=== PATIENT | male | born 1990 | race Hispanic/Latino ===

== ENCOUNTER 2024-12-04 18:04 | Emergency (ER) | payer SELFPAY ==
[2024-12-04 18:13] VITALS: BP 158/97
[2024-12-04 18:46] VITALS: BP 134/76
[2024-12-04 18:46] LABS: % Basophils 0.2 % (0-2); % Eosinophils 0.2 % (0-6); % Immature Granulocytes 0.5 % (0-0.5); % Lymphocytes 12.2 % (20.5-51.1); % Monocytes 4.6 % (1.7-9.3); % Neutrophils 82.3 % (42.2-75.2); Absolute Immature Granulocytes 0.1 10^3/uL (0-0.05); Absolute Lymphocytes 1.9 10^3/uL (1.2-3.4); Absolute Monocytes 0.7 10^3/uL (0.1-0.6); Absolute Neutrophils 12.9 10^3/uL (1.4-6.5); Hematocrit 44.5 % (39.0-52.0); Hemoglobin 15.4 g/dL (13.0-18.0); Mean Corp Hgb Conc. 34.6 g/dL (33.0-37.0); Mean Corpuscular Hgb 31.2 pg (27.0-31.0); Mean Corpuscular Volume 90.3 fL (80.0-94.0); Nucleated Red Blood Cells % 0 % (-); Platelet Count 251 10^3/uL (130-400); Red Blood Cell Count 4.93 10^6/uL (4.70-6.10); White Blood Cell Count 15.6 10^3/uL (4.8-10.8)
--- NOTE | 2024-12-04 18:47 | ED.GENMED ---
History of Present Illness
General
Chief Complaint: Trauma Significant Mechanism
Source: patient and other (co-worker)
Time Seen by Provider: 12/04/24 18:36
History of Present Illness
History of Present Illness:
34-year-old male presents to the emergency room via private vehicle after having a ride on lawnmower flipped over on top of him. Patient states that around 4 PM he was riding this lawnmower up a hill when it flipped over and landed on top of him.
Patient did not lose consciousness but was pinned under the mower for some time. He required 4 individuals to lift the mower off the top of him. Patient states the weight of the bowel or was causing him to feel as if he was going to pass out.
Patient is complaining of sternal pain, bilateral shoulder and clavicle pain. Patient states he was able to move his arms at the shoulder earlier but has difficulty moving them now seemingly because of pain primarily. He denies any numbness or
tingling anywhere in his body. He denies back pain per se. He takes drops for glaucoma but no oral medications. His last meal was about 1:20 PM. He does not recall his last tetanus shot. He denies abdominal pain nausea or vomiting. He has been
ambulatory with assistance after the injury.
Phy Exam
Physical Exam
Physical Exam:
General: Awake, Alert, Oriented X3. Appears very uncomfortable
Vitals: Mildly hypertensive
Head: Atraumatic
Eyes: Pupils equal, EOMI
Throat: Airway intact, no exudates
Neck: Trachea midline, no significant tenderness midline palpation
Chest: Tender to palpation of the sternum, some questional crepitance over the right thorax
Lungs: Clear and equal b/l
Heart: Regular rate, no murmurs
Abd: Soft, Nontender, No pulsatile mass
Neuro: Cranial nerves intact, muscle strength equal bilaterally, cerebellar exam normal
Skin: Warm, dry, no rash
Extremities: pulses equal b/l, no edema. Radial pulses dorsalis pedis pulses intact bilaterally. Range of motion intact at the ankle, knee, hip bilaterally. Range of motion intact in the digits wrist and elbow bilateral upper extremities. Pain
limits range of motion of the shoulders bilaterally.
Course
Orders/Labs/Results
Orders:
Orders
12/04/24 18:36
CT Cervical Spine W/o Iv Contr Urgent
Comment:
Reason For Exam: fall
CT Head W/o Iv Contrast Urgent
Comment:
Reason For Exam: fall
12/04/24 18:38
Complete Blood Count/With Diff Urgent
Comprehensive Metabolic Panel Urgent
12/04/24 18:46
CT Chest/abd/pel W Iv Cont Stat
Comment:
Reason For Exam: trauma/crush inj
Chest X-ray Portable [CR Chest Portable - 1 View] Stat
Comment:
Reason For Exam: trauma, sob
Reason Study Needs to be Portable: Patient Unstable
12/04/24 18:47
HYDROmorphone [Dilaudid] 1 mg IV NOW STA
Lactated Ringers [Lr] 500 ml IV BOLUS
Tetanus/Diphth/Acelpertussis [Adacel] 0.5 ml IM .ONCE ONE
12/04/24 18:56
Electrocardiogram (*1) Urgent
Reason for Study: Chest Pain
EKG- Treatment ONCE
12/04/24 18:57
Type+Screen Stat
Alcohol Urgent
CPK [Creatine Phosphokinase] Urgent
12/04/24 20:07
Ketorolac [Toradol] 15 mg IV NOW STA
Abnormal Lab Results
12/04/24 12/04/24
18:38 18:57
WBC 15.6 H 10^3/uL
(4.8-10.8)
MCH 31.2 H pg
(27.0-31.0)
Abs Immat Gran (auto) 0.1 H 10^3/uL
(0-0.05)
Absolute Neuts (auto) 12.9 H 10^3/uL
(1.4-6.5)
Absolute Monos (auto) 0.7 H 10^3/uL
(0.1-0.6)
Neutrophils % 82.3 H %
(42.2-75.2)
Lymphocytes % 12.2 L %
(20.5-51.1)
Glucose 119 H mg/dl
(70-99)
Creatine Kinase 403 H U/L
(55-170)
Total Protein 8.7 H g/dl
(6.3-8.2)
Albumin 5.7 H g/dl
(3.5-5.0)
12/04/24 18:38
12/04/24 18:38
Vital Signs
Initial and Last Documented VS:
Initial Vital Signs
Temp Pulse Resp BP Pulse Ox
98.3 F 75 14 158/97 100
12/04/24 18:13 12/04/24 18:13 12/04/24 18:13 12/04/24 18:13 12/04/24 18:13
Last Documented Vital Signs
Temp Pulse Resp BP Pulse Ox
98.3 F 79 16 119/72 100
12/04/24 18:13 12/04/24 21:15 12/04/24 21:15 12/04/24 21:00 12/04/24 21:15
MDM/Problems Addressed
Differential Diagnosis Includes:
Sternal fracture, rib fractures, pneumothorax, clavicle or humeral fracture
MDM/Problems Addressed:
Patient presents after a industrial type lawnmower fell backwards onto him. He said no injuries from the blades but was pinned under the machine for about 3 to 4 minutes. He arrives complaining of pain everywhere but significantly so in the chest
and shoulders. Grace scan was obtained which shows no evidence of any acute bony or organ injury. I suspect he will have significant soreness of his muscles and costochondral joints from the pressure exerted on him. Given the the machine was on him
for a relatively short period of time I do not believe he is at risk for rhabdo. Given his negative imaging patient stable for discharge home. Recommend Tylenol be Profen for discomfort. Patient was ambulating about his room at the time of
discharge. He felt much better after treatment here.
*Radiology
Radiology exam reviewed: radiology read reviewed
*Pulse Oximetry
Patient hypoxic: no
*EKG
Interpreted by ED Provider?: Yes
Heart Rate: 73
Rate: normal
Rhythm: sinus
[place]: normal axis
Interval: normal interval
QRS Pattern: normal QRS
Ischemia: no ischemia
*[place] Interpretation
Rate: normal
Interpretation: normal
Rhythm: sinus
*Critical Care Note
Total Time (30-74mins, 75-104mins- exclusive of procedures): Not Applicable
ED Attending Note
-
Portions of this chart may have been created with voice recognition software.� Occasional wrong word or��sound alike� substitutions may have occurred due to the inherent limitations of voice recognition software.
Discharge Plan
Departure
Patient Disposition: Home (Routine Discharge)
Date of Disposition: 12/04/24
Time of Disposition: 21:30
Patient with high blood pressure during this ER visit?: No
Condition: Good
Discharge Problem:
Chest wall contusion, Shoulder strain
Instructions: Blunt Chest Trauma ED, Shoulder pain
Referrals:
NONE,* [Family Provider] -
Activity Restrictions/Additional Instructions:
You can take 600mg of ibuprofen every 6 hours and Tylenol 1000mg every 6 hours for pain
Interventions
Interventions:
*Risk Screen - Suicide Last Done: 12/04/24 18:13
*General Assessment Last Done: 12/04/24 18:13
*Neglect/Abuse Screening Last Done: 12/04/24 18:33
*ED- Fall Risk Assessment Last Done: 12/04/24 18:33
*ED COVID-19 Vaccine History Last Done: 12/04/24 18:13
*Nursing Disposition Last Done: 12/04/24 21:54
Discharge Date and Time
Discharge Date/Time: 12/04/24 21:55
Print Language: [place]
[2024-12-04] MEDS: DILAUDID 1 MG IV (18:55)
[2024-12-04] MEDS: LR 500 IV (18:55)
[2024-12-04] MEDS: ADACEL 0.5 ML IM (18:56)
[2024-12-04 19:00] VITALS: BP 145/80
[2024-12-04 19:02] LABS: ALT (SGPT) 39 U/L (0-50); AST (SGOT) 37 U/L (17-59); Albumin 5.7 g/dl (3.5-5.0); Alkaline Phosphatase 106 U/L (38-126); Blood Urea Nitrogen 15 mg/dl (9-20); Carbon Dioxide 26 mmol/L (22-30); Chloride 98 mmol/L (98-107); Glucose 119 mg/dl (70-99); Potassium 4.1 mmol/L (3.5-5.1); Sodium 137 mmol/L (135-145); Total Bilirubin 0.8 mg/dl (0.2-1.3); Total Protein 8.7 g/dl (6.3-8.2); eGFR > 60.00
[2024-12-04 19:19] LABS: Alcohol None Detected; Creatine Phosphokinase 403 U/L (55-170)
[2024-12-04 20:00] VITALS: BP 141/85
[2024-12-04] MEDS: TORADOL 15 MG IV (20:17)
[2024-12-04 21:00] VITALS: BP 119/72
== END 2024-12-04 21:55 | disposition home or self-care (01) ==
LOC: EMR 18:04
PROVIDERS: EMERGENCY PHYSICIAN Emergency Medicine
DX: S20.219A Contusion of unspecified front wall of thorax, initial encounter (principal); S46.912A Strain of unspecified muscle, fascia and tendon at shoulder and upper arm level, left arm, initial encounter; S46.911A Strain of unspecified muscle, fascia and tendon at shoulder and upper arm level, right arm, initial encounter; R07.2 Precordial pain; R06.02 Shortness of breath; W31.89XA Contact with other specified machinery, initial encounter; Y93.89 Activity, other specified; Y92.89 Other specified places as the place of occurrence of the external cause; Y99.0 Civilian activity done for income or pay; Z23 Encounter for immunization; H40.9 Unspecified glaucoma
CPT/HCPCS: 99285; 96361; 96374; 96375; 70450; 71045; 71260; 72125; 74177; 80053; 82077; 82550; 85025; 86850; 86900; 86901; 90715; 93005; Q9967